=== PATIENT | female | born 2000 | race Caucasian/White ===

== ENCOUNTER 2022-05-02 10:58 | Emergency (ER) | payer BC, SELFPAY ==
[2022-05-02 11:00] VITALS: BP 173/71; PULSE 99; RESP 16; TEMP 36.3; O2SAT 99; BMI 46.0
--- NOTE | 2022-05-02 12:28 | ED_ITS ---
HPI - General Adult General Chief complaint: Animal Bite Stated complaint: Cat bite Time Seen by Provider: 05/02/22 12:27 Source: patient Mode of arrival: ambulatory Limitations: no limitations History of Present Illness HPI narrative: Patient is a 21 year old assigned female at with no reported medical history presenting to the emergency department today with a cat bite. Patient states that she was bitten by her cat on her left cheek. Patient states that she is unsure if her cat is up to date on her shots but she still has the cat and can observe the cat. Patient states that she is not sure if she up to date on her tetanus shot. Patient denies any dizziness, lightheadedness, abdominal pain, nausea, vomiting, fever, chills, blurry vision, double vision, loss of vision, chest pain, difficulty breathing, shortness of breath, back pain, night sweats, pain with urination, increased urinary frequency, increased urinary urgency, blood in her urine or stool, syncope or a near syncopal episode, recent trauma or falls, bowel incontinence, bladder incontinence, bowel retention, bladder retention, or any other complaints at this time. Onset (ago): day(s) (1) Location: face Severity: mild Severity scale (1-10): 2 Quality: dull Pain Consistency: constant Relieving factors: none Exacerbating factors: none Associated symptoms: denies other symptoms Treatments prior to arrival: none Related Data Previous Rx's Medication Instructions Recorded amoxicillin 875 mg-potassium 1 tab PO BID 10 days #20 tabs 05/02/22 clavulanate 125 mg tablet Allergies Allergy/AdvReac Type Severity Reaction Status Date / Time nitrofurantoin Allergy Intermediate Hives Verified 05/02/22 11:00 [From Macrobid] sulfamethoxazole Allergy Unknown Unknown Verified 05/02/22 11:00 [From Bactrim] trimethoprim [From Bactrim] Allergy Unknown Unknown Verified 05/02/22 11:00 Review of Systems Constitutional: Constitutional: Reports no additional constitutional complaints, Denies chills, Denies fever(s) and Denies night sweats Eyes: Eyes: Reports no additional eye complaints, Denies blurry vision, Denies change in vision, Denies diplopia, Denies eye discharge, Denies loss of vision and Denies eye pain ENT: Denies dizziness Comments: cat bite to left cheek Cardiovascular: Cardiovascular: Reports no additional cardiovascular complaints, Denies chest pain, Denies lightheadedness, Denies Loss of Consciousness and Denies dyspnea Respiratory: Respiratory: Reports no additional respiratory complaints and Denies dyspnea Gastrointestinal: Gastrointestinal: Reports no additional gastrointestinal complaints, Denies abdominal pain, Denies melena, Denies hematochezia, Denies change in bowel habits and Denies change in stool character Genitourinary: Genitourinary: Denies hematuria, Denies urinary frequency, D enies dysuria, Denies urinary incontinence, Denies urinary hesitancy and Denies urinary urgency Musculoskeletal: Musculoskeletal: Reports no additional musculoskeletal complaints, Denies numbness and Denies tingling Neurologic: Denies dizziness, Denies loss of vision, Denies numbness and Denies tingling Psychiatric: Psychiatric: Reports no additional psychiatric complaints Endocrine: Endocrine: Reports no additional endocrine complaints Hematologic/Lymphatic: Hematologic/Lymphatic: Reports no additional hematologic/lymphatic complaints Allergic/Immunologic: Allergic/Immunologic: Reports no additional allergic/immunologic complaints PMFSH Past Medical History Attestation statement: The following information was validated with the patient. Source: old records reviewed and nursing notes reviewed Social History Social History Advance Directives: No Advance Directives Information Provided: No Physical Exam ED Vital Signs: Vital Signs - 24 hr 05/02/22 11:00 Temperature 97.3 F Pulse Rate 99 Respiratory Rate 16 Blood Pressure 173/71 H Pulse Oximetry 99 Oxygen Delivery Method Room Air BMI result Body Mass Index 46.0 Const General: cooperative, no acute distress, alert and awake Nutritional Appearance: well nourished Orientation/consciousness: patient oriented x3 Limitations: no limitations HENMT Other: small abrasion to the left facial cheek - no active bleeding, no gaping areas, no surrounding erythema, no warmth Ears: hearing grossly normal bilaterally and external ears normal General nose exam: Normal external nose present, no nasal discharge noted and no epistaxis Face and sinus: Yes normal facial exam, No abrasion and No laceration Mouth: Normal oral and palatal mucosa present, no drooling and no muffled voice Eyes General: appearance normal, both eyes and all related structures Periorbital: periorbital findings normal Eyelids: Yes eyelids normal Conjunctivae: conjunctivae normal Pupils: Equal, round and reactive pupils present EOM: EOMs intact bilaterally Neck Neck: Yes normal visual inspection, Yes full ROM and Yes no lymphadenopathy Chest Chest palpation & inspection: normal inspection of the chest Resp Effort & Inspection: normal respiratory effort and able to speak in complete sentences Auscultation: clear to auscultation bilaterally Cardio Rate: regular rate Rhythm: regular rhythm GI Inspection: Yes normal to inspection Neuro General: patient oriented x3 and moves all extremities Cranial nerves: Yes Equal, round and reactive pupils present Cognition (Neuro): normal cognition Motor exam (neuro): 5/5 motor strength present throughout Sensory Exam: Normal double simultaneous stimulation for sensation Coordination: [id number] test normal Extrem General: Yes normal to inspection, Yes full ROM and Yes capillary refill normal Psych Appearance: grossly normal Mental Status: mental status grossly normal Affect: normal affect Attitude: cooperative Thought process: Normal thought process present Thought content: Normal thought content present Insight: Good insight present (Psych) Medications Administered Discontinued Medications Generic Name Dose Route Start Last Admin Trade Name Freq PRN Reason Stop Dose Admin Diphtheria/Tetanus/Acell Pertussis 0.5 ml 05/02/22 12:34 05/02/22 12:45 Diphth,Pertus(Acell),Tet Adult 0.5 Ml Syringe IM 05/02/22 12:35 0.5 ml .ONCE ONE Administration Medical Decision Making Medical Decision Making [facility] Narrative: Patient is a 21 year old assigned female at with no reported medical history presenting to the emergency department today after being bit by a cat on her left cheek. Patient's physical exam showed a small, superficial, abrasion on her left facial cheek with no gaping areas, no warmth, no surrounding erythema, and no active bleeding. I explained my physical exam findings to the patient. I answered all questions asked by the patient. Patient was brought to date on her tetanus and given strict observation precautions for her cat. I stressed the importance of the patient taking her medication as prescribed. I stressed the importance of the patient following up with her primary care provider. I stressed the importance of the patient returning to the emergency department immediately if her symptoms were to worsen or if she were to develop any dizziness, shortness of breath, difficulty breathing, chest pain, blurry vision, loss of vision, nausea, vomiting, abdominal pain, fever, chills, back pain, or any other complaints. Patient verbalized agreement and understanding with this treatment plan and discharge. Differential Diagnosis Differential Diagnoses: The differential diagnosis associated with the presentation includes cat scratch, cat bite, cat wound Discharge Plan Discharge Clinical Impression: Cat bite Patient Disposition: Home, Self-Care Instructions: Animal Bite (ED) Additional Instructions: Follow up with your primary care provider. Return to the emergency department immediately if your symptoms worsen or if you develop any dizziness, shortness of breath, difficulty breathing, chest pain, blurry vision, loss of vision, nausea, vomiting, abdominal pain, fever, chills, back pain, or any other complaints. Prescriptions: New amoxicillin-pot clavulanate 875-125 mg tablet 1 tab PO BID 10 Days Qty: 20 0RF Referrals: [facility] Family Medicine [Provider Group] (Call to establish and follow up with a primary care provider. If you already have a primary care provider, please follow up with them. ) [facility] Primary Care, Siobhan [Provider Group] (Call to establish and follow up with a primary care provider. If you already have a primary care provider, please follow up with them. ) [facility] Primary Care,David [Provider Group] (Call to establish and follow up with a primary care provider. If you already have a primary care provider, please follow up with them. ) Stand Alone Forms: Work/School Release Interventions: ED Discharge Assessment Last Done: 05/02/22 12:53 Discharge Date/Time: 05/02/22 12:53 Print Language: Armenian
[2022-05-02] MEDS: Diphth,Pertus(ACell),Tet Adult 0.5 ML SYRINGE IM (12:45)
== END 2022-05-02 12:53 | disposition home or self-care (01) ==
LOC: HO.ED 12:42
PROVIDERS: Emergency Provider Emergency Medicine
DX: S00.87XA Other superficial bite of other part of head, initial encounter (principal); W55.01XA Bitten by cat, initial encounter; Y93.9 Activity, unspecified; Y92.9 Unspecified place or not applicable; Y99.9 Unspecified external cause status
CPT/HCPCS: 90471; 90715; 99282; 99284

== ENCOUNTER → 2022-09-13 09:40 | Outpatient (BNVA) | payer OTHER, SELFPAY | PROVIDERS: Visit Provider Physician Assistant Medical | DX: Z77.21 Contact with and (suspected) exposure to potentially hazardous body fluids (principal) | CPT/HCPCS: 36415; 84450; 84460; 85025; 86706; 86803; 87389; 99203 ==

== ENCOUNTER → 2022-09-15 09:08 | Outpatient (BNVA) | payer OTHER, SELFPAY | PROVIDERS: Visit Provider Physician Assistant | DX: Z77.21 Contact with and (suspected) exposure to potentially hazardous body fluids (principal) | CPT/HCPCS: 99211 ==

== ENCOUNTER → 2022-09-27 14:04 | Outpatient (BNVA) | payer OTHER, SELFPAY | PROVIDERS: Visit Provider Physician Assistant Medical | DX: Z77.21 Contact with and (suspected) exposure to potentially hazardous body fluids (principal) | CPT/HCPCS: 36415; 82150; 82565; 84450; 84460; 85025; 99213 ==

== ENCOUNTER → 2022-11-08 14:20 | Outpatient (BNVA) | payer OTHER, SELFPAY | DX: Z77.21 Contact with and (suspected) exposure to potentially hazardous body fluids (principal) | CPT/HCPCS: 36415; 84450; 84460; 86706; 86803; 87389 ==

== ENCOUNTER 2023-12-31 02:20 | Emergency (ER) | payer BC, SELFPAY ==
--- NOTE | ~2023-12-31 | XR_ITS ---
EXAMINATION: XR ANKLE, LEFT CLINICAL INFORMATION: Injury. Pain. COMPARISON: None available. TECHNIQUE: AP, lateral, and mortise views of the left ankle. FINDINGS: The bone mineralization is normal. The joint spaces are maintained. No evidence for fracture. There is lateral soft tissue swelling. XR/XR ankle LT min 3V IMPRESSION: Lateral soft tissue swelling. No evidence for fracture or dislocation.
[2023-12-31 02:26] VITALS: BP 158/99; PULSE 90; RESP 18; TEMP 36.1; O2SAT 98; BMI 42.9
[2023-12-31] MEDS: Ibuprofen 600 MG TABLET PO (03:00)
--- NOTE | 2023-12-31 03:14 | ED_ITS ---
HPI - Extremity Injury (Lower) General Chief Complaint: Extremity Injury, Lower Stated Complaint: ankle inj Time Seen by Provider: 12/31/23 02:48 Source: patient Mode of arrival: ambulatory Limitations: no limitations History of Present Illness ED Provider: DR. Vila HPI Narrative: 23-year-old female came in for evaluation of left ankle pain and injury [place], patient thinks she twisted left ankle, was able to bear weight initially now she can not bear weight. Declined chance of being today. Related Data Previous Rx's ?Medication ?Instructions ?Recorded amoxicillin 875 mg-potassium 1 tab PO BID 10 days #20 tabs 05/02/22 clavulanate 125 mg tablet ondansetron 4 mg disintegrating 4 mg translingual TID PRN nausea 09/13/22 tablet and vomiting 10 days #30 tabs emtricitabine 200 mg-tenofovir 1 tab PO DAILY #30 tabs 09/15/22 disoproxil fumarate 300 mg tablet (Truvada) raltegravir 400 mg tablet 400 mg PO BID 24 days #48 tabs 09/15/22 Allergies Allergy/AdvReac Type Severity Reaction Status Date / Time nitrofurantoin Allergy Intermediate Hives Verified 12/31/23 02:27 [From Macrobid] sulfamethoxazole Allergy Unknown Unknown Verified 12/31/23 02:27 [From Bactrim] trimethoprim [From Bactrim] Allergy Unknown Unknown Verified 12/31/23 02:27 Review of Systems Review of Systems: All other systems are reviewed and are negative Constitutional: Reports as per HPI and Reports no additional constitutional complaints Eyes: Reports as per HPI and Reports no additional eye complaints Reports system reviewed and no additional complaints, except as documented Cardiovascular: Reports as per HPI and Reports no additional cardiovascular complaints Respiratory: Reports as per HPI and Reports no additional respiratory complaints Gastrointestinal: Reports as per HPI and Reports no additional gastrointestinal complaints Genitourinary: Reports no additional female genitourinary complaints Musculoskeletal: Reports no additional musculoskeletal complaints Skin/Breast: Reports system reviewed and no additional complaints, except as docu Psychiatric: Reports no additional psychiatric complaints Endocrine: Reports no additional endocrine complaints Hematologic/Lymphatic: Reports no additional hematologic/lymphatic complaints Allergic/Immunologic: Reports no additional allergic/immunologic complaints Reports system reviewed and no additional complaints, except as documented and Reports Abnormal speech present [facility] Social History Social History Advance Directives: No Advance Directives Information Provided: No Do you have a plan to hurt others: No Plan Physical Exam Vital Signs: Vital Signs: Last Vital Signs Temp 98.4 F 12/31/23 05:20 Pulse 77 12/31/23 05:20 Resp 18 12/31/23 05:20 BP 127/70 12/31/23 05:20 Pulse Ox 98 12/31/23 05:20 O2 Del Method Room Air 12/31/23 05:20 BMI result Body Mass Index 42.9 Vital signs have been reviewed and appear to be correct. Blood pressure elevated. Heart rate normal. Respiratory rate normal. Temperature normal. Ox ygen saturation normal. Appearance: Alert. Oriented X3. No acute distress. Head: Normal external exam. Normocephalic. Atraumatic. No Dao signs noted. No raccoon eyes noted Eyes: PERRLA. EOMI. Conjunctiva and sclera normal. Eyelids normal. ENT: TM's Normal. Pharynx normal. Uvula midline. Moist mucous membranes. No trismus noted. No drooling noted. No muffled voice noted. Neck: Normal inspection. Neck supple. FROM. No adenopathy. Thyroid Normal. No meningeal signs. No neck mass noted. CVS: Normal heart rate and rhythm. Heart sound normal. No murmurs noted. Pulses normal throughout. Respiratory: No respiratory distress. Painless inspiration. Breath sounds normal. No wheezes/rales/rhonchi noted. Chest nontender. No accessory muscle usage noted or decreased air movement noted. Abdomen: Soft and nontender. Bowel sounds normal in all 4 quadrants. No distention noted. No organomegaly noted. No visible injury noted. Back: No CVA tenderness. Full range of motion noted. Skin: Skin warm and dry. Normal skin color. Normal skin turgor. No rashes/lesions/lacerations noted. Extremities: Left ankle: Tenderness over medial and lateral malleolus, minor swelling over the left ankle, FROM. Neuro: Oriented X 3. Cranial nerve exam: II-XII are grossly intact No motor deficit. No sensory deficit. Reflexes normal. Course Reevaluation(s) Reevaluation #1: Left ankle sprain, [place] bandage wrap, crutches, NSAIDs, follow-up with ortho. Time: 04:00 Medications Administered Discontinued Medications Generic Name Dose Route Start Last Admin Trade Name Freq PRN Reason Stop Dose Admin Ibuprofen 600 mg 12/31/23 02:54 12/31/23 03:00 Ibuprofen 600 Mg Tablet PO 12/31/23 02:55 600 mg ONCE ONE Administration Medical Decision Making Differential Diagnosis Differential Diagnoses: The differential diagnosis associated with the presentation includes (Left ankle fracture, left at contusion, left ankle sprain.) Admission/Observation Consideration of admission/observation: Escalation of care including admissi on/observation considered Independent Interpretation I performed an independent interpretation of an: Plain X-Ray (Left ankle: No acute left ankle fracture.) Radiology Impression Discussion of test interpretation with radiology: I have reviewed the radiologist's reading. Discharge Plan Discharge Clinical Impression: Ankle sprain and strain Patient Disposition: Home, Self-Care Instructions: Ankle Sprain (ED) Additional Instructions: Rest, ice, elevation of the left foot, no weight-bearing use the crutches, take ibuprofen 200 mg [id number] every 6 hours if needed pain, follow-up with Dr. Corley if symptoms persist. Prescriptions: No Action ondansetron 4 mg tablet,disintegrating 4 mg translingual TID PRN (Reason: nausea and vomiting) 10 Days Qty: 30 2RF amoxicillin-pot clavulanate 875-125 mg tablet 1 tab PO BID 10 Days Qty: 20 0RF emtricitabine-tenofovir (TDF) [Truvada] 200-300 mg tablet 1 tab PO DAILY Qty: 30 0RF Rx Instructions: take for 24 days- . raltegravir 400 mg tablet 400 mg PO BID 24 Days Qty: 48 0RF Rx Instructions: days 5-28 of PEP for needle stick exposure. Referrals: Hernesto Corley MD [Physician] - Che Peoples MD [Primary Care Provider] - Print Language: [place] Island[place]
[2023-12-31 05:20] VITALS: BP 127/70; PULSE 77; RESP 18; TEMP 36.9; O2SAT 98
== END 2023-12-31 05:54 | disposition home or self-care (01) ==
PROVIDERS: Emergency Provider Emergency Medicine; PCP Internal Medicine
DX: S93.402A Sprain of unspecified ligament of left ankle, initial encounter (principal); X58.XXXA Exposure to other specified factors, initial encounter; Y93.18 Activity, surfing, windsurfing and boogie boarding; Y92.831 Amusement park as the place of occurrence of the external cause; Y99.8 Other external cause status
CPT/HCPCS: 73610; 99283; 99284

== ENCOUNTER 2024-01-19 11:32 | Outpatient (AMB) | payer BC, SELFPAY ==
--- NOTE | 2024-01-19 11:36 | MHC.OFFVIS ---
Intake Visit Reasons: EDITOR NEWS-Left Ankle sprain and strain Intake Note: Amelia is a 23 year old female who presents today as a new patient for a evolution of her left ankle pain, DOI 12/31/23. Patient reports she was playing at a water slide at the [employer], patient thinks she twisted her left ankle. She mentioned she was able to bear weight initially now she can not bear weight. Currently she is feeling better, however she is having some mild pain around her ankle. Allergies nitrofurantoin [From Macrobid] Allergy (Intermediate, Verified 01/19/24 11:38) Hives sulfamethoxazole [From Bactrim] Allergy (Unknown, Verified 01/19/24 11:38) Unknown trimethoprim [From Bactrim] Allergy (Unknown, Verified 01/19/24 11:38) Unknown HPI HPI EDITOR NEWS-Left Ankle sprain and strain: Details: 23-year-old female who presents in the office today, as a new patient, for an evaluation of left ankle pain. The patient presented to the ED on 12/31/2023 status post twisting her?left ankle when she was going down a waterslide. X-rays were obtained.?She was placed in an BRANT wrap and supplied with crutches. ?? ? While in the office today, the patient reports immediately after the injury she was able to bear weight on the left lower extremity but is now unable to do so. Overall, she states she feels better but does report some mild pain in the left ankle. [facility] Social History (Updated 01/19/24 @ 11:39 by Madalyn Mckeon) Alcohol intake: current Alcohol intake frequency: holidays/special occasions only Patient Tobacco Use Status: Current everyday Tobacco user Current occupational status: employed Review of Systems Const All systems reviewed & are unremarkable except as noted in HPI and below Physical Exam Const General: cooperative and no acute distress Orientation/consciousness: patient oriented x3 Resp Effort & Inspection: normal respiratory effort and able to speak in complete sentences Cardio Peripheral pulses: Peripheral pulses 2+ throughout Skin General skin exam: no rashes or lesions noted Neuro General: patient oriented x3 Extrem Other: Left foot/ankle: Normal to inspection. No ecchymosis, erythema, or edema. Patient is able to demonstrate dorsiflexion, plantar flexion, pronation and supination. Negative anterior drawer. Sensation intact. Pedal Pulse intact.? Assessment & Plan Assessment & Plan (1) Left ankle sprain: Code(s): S93.402A - Sprain of unspecified ligament of left ankle, initial encounter Category: Medical Plan Ms. Lange is a 23-year-old female who presents in the office today, as a new patient, for an evaluation of left ankle pain. The patient presented to the ED on 12/31/2023 status post twisting her?left ankle when she was going down a waterslide. X-rays were obtained.?She was placed in an BRANT wrap and supplied with crutches. ?? ? While in the office today, the patient reports immediately after the injury she was able to bear weight on the left lower extremity but is now unable to do so. Overall, she states she feels better but does report some mild pain in the left ankle.? ? We discussed the role of a walking boot; however, it has been three weeks since the injury and her symptoms have gradually been improving, we have decided to defer the boot this time. I offered the patient physical therapy but again due to improvement she has elected to decline. At this time, she understands that if she stops progressing or regressing, then she should contact our office, and I will place a formal physical therapy order. Follow-up will be PRN, or sooner if needed. ? ? X-rays of the left ankle, obtained on 12/31/23, revealed:?Lateral soft tissue swelling. No evidence for fracture or dislocation.? Patient Instructions: Scribed by Alicja Grayson medical office rep, for Nannette Duran PA-C on 01/19/2024 at 11:51 am, EST.? Coding Level of Care Code New Pt Level 3 (69774) Diagnoses Left ankle sprain S93.402A
== END 2024-01-19 11:43 | disposition home or self-care (01) ==
PROVIDERS: PCP Internal Medicine; Visit Provider Physician Assistant
DX: S93.402A Sprain of unspecified ligament of left ankle, initial encounter (principal)
CPT/HCPCS: 99203

== ENCOUNTER → 2024-01-19 11:32 | Outpatient (BNVA) | payer BC, SELFPAY | PROVIDERS: PCP Internal Medicine; Visit Provider Physician Assistant ==